=== PATIENT | male | born 1985 | race Two or more races ===

== ENCOUNTER 2016-11-23 22:09 | Emergency (ER) | payer SELFPAY ==
[~2016-11-23] VITALS: Ht 175.3 cm; Wt 131.5 kg
[2016-11-23] MEDS ORDERED: ACETAMINOPHEN ES 500 MG TABLET ONE (22:57)
[2016-11-23] MEDS ORDERED: IBUPROFEN 800 MG TABLET ONE (22:58)
[2016-11-23] MEDS ORDERED: AMOXICILLIN-CLAVUL 875-125MG TABLET ONE (22:58)
[2016-11-23] MEDS ORDERED: IBUPROFEN 800 MG TABLET PO ONE (23:00)
[2016-11-23] MEDS ORDERED: AMOXICILLIN-CLAVUL 875-125MG TABLET PO ONE (23:00)
[2016-11-23] MEDS ORDERED: ACETAMINOPHEN ES 500 MG TABLET PO ONE (23:00)
--- NOTE | 2016-11-23 23:00 | NUR ---
Patient discharged to home in stable conditon. Written and verbal after care instructions given. Patient verbalizes understanding of instructions.
== END 2016-11-23 23:01 | disposition home or self-care (01) ==
LOC: ER 22:09
DX: J02.0 Streptococcal pharyngitis (principal); F10.20 Alcohol dependence, uncomplicated
CPT/HCPCS: A4663

== ENCOUNTER 2016-11-27 10:57 | Emergency (ER) | payer SELFPAY ==
[~2016-11-27] VITALS: Ht 175.3 cm; Wt 131.5 kg
[2016-11-27] MEDS ORDERED: AMOX-430 PO (11:05)
--- NOTE | 2016-11-27 11:48 | NUR ---
Patient discharged to home in stable conditon. Written and verbal after care instructions given. Patient verbalizes understanding of instructions.PT WALKS IN STEADY GAIT. NO SIGN OF DISTRESS.
== END 2016-11-27 11:52 | disposition home or self-care (01) ==
LOC: ER 10:57
DX: K05.10 Chronic gingivitis, plaque induced (principal); K20.9 Esophagitis, unspecified; F10.20 Alcohol dependence, uncomplicated
CPT/HCPCS: 71010; 93005; A4663

== ENCOUNTER 2016-12-24 16:23 | Emergency (ER) | payer SELFPAY ==
[~2016-12-24] VITALS: Ht 175.3 cm; Wt 102.1 kg
[~2016-12-24 16:23] MED LIST: AMOX-430 PO
--- NOTE | 2016-12-24 17:35 | NUR ---
Pt ambulatory to bed 4b, dr craft at bedside for exam.
[2016-12-24] MEDS ORDERED: CEPHALEXIN MONOHYDRATE 500 MG CAPSULE PO ONE (18:00)
[2016-12-24] MEDS ORDERED: predniSONE 20 MG TABLET PO ONE (18:00)
[2016-12-24] MEDS ORDERED: predniSONE 20 MG TABLET ONE (18:11)
[2016-12-24] MEDS ORDERED: CEPHALEXIN MONOHYDRATE 500 MG CAPSULE ONE (18:12)
--- NOTE | 2016-12-24 18:14 | NUR ---
Pt medicated and ready for dc.
[2016-12-24 18:15] VITALS: BP 126/84
== END 2016-12-24 18:16 | disposition home or self-care (01) ==
LOC: ER 16:23
DX: L04.0 Acute lymphadenitis of face, head and neck (principal); F10.20 Alcohol dependence, uncomplicated; J45.909 Unspecified asthma, uncomplicated
CPT/HCPCS: A4663; J7512

== ENCOUNTER 2017-03-11 09:54 | Emergency (ER) | payer SELFPAY ==
[~2017-03-11] VITALS: Ht 175.3 cm; Wt 127.0 kg
--- NOTE | 2017-03-11 10:05 | NUR ---
PT IS IN ROOM #2A. DR TARIQ EVALUATED THE P.
[2017-03-11] MEDS ORDERED: OXYCODONE/APAP 5-325 MG TABLET PO ONE (10:30)
[2017-03-11] MEDS ORDERED: predniSONE 20 MG TABLET PO ONE (10:30)
[2017-03-11] MEDS ORDERED: OXYCODONE/APAP 5-325 MG TABLET ONE (10:40)
[2017-03-11] MEDS ORDERED: predniSONE 50 MG TABLET ONE (10:41)
[2017-03-11] MEDS ORDERED: predniSONE 10 MG TABLET ONE (10:41)
--- NOTE | 2017-03-11 10:42 | NUR ---
PT WAS D/C TO HOME. D/C INSTRUCTIONS GIVEN TO THE PT.
[2017-03-11 10:44] VITALS: BP 139/88
== END 2017-03-11 10:45 | disposition home or self-care (01) ==
LOC: ER 09:56
DX: M10.9 Gout, unspecified (principal); F10.20 Alcohol dependence, uncomplicated; J45.909 Unspecified asthma, uncomplicated; E66.9 Obesity, unspecified; Z90.49 Acquired absence of other specified parts of digestive tract
CPT/HCPCS: A4663; J7512

== ENCOUNTER 2017-04-19 19:47 | Emergency (ER) | payer SELFPAY ==
[~2017-04-19] VITALS: Ht 175.3 cm; Wt 131.5 kg
[2017-04-19] MEDS ORDERED: HYDROCODONE/APAP 10-325 MG TABLET PO ONE ×2 (20:15)
[2017-04-19] MEDS ORDERED: COLCHICINE 0.6 MG TABLET PO ONE (20:15)
[2017-04-19] MEDS ORDERED: HYDROCODONE/APAP 10-325 MG TABLET ONE ×2 (20:25→20:29)
[2017-04-19] MEDS ORDERED: COLCHICINE 0.6 MG TABLET ONE (20:26)
--- NOTE | 2017-04-19 20:30 | NUR ---
Patient discharged to home in stable conditon. Written and verbal after care instructions given. Patient verbalizes understanding of instructions. WALKED OUT OF ER WITH STEADYB GAIT
[2017-04-19 20:31] VITALS: BP 128/75
== END 2017-04-19 20:32 | disposition home or self-care (01) ==
LOC: ER 19:47
DX: M10.9 Gout, unspecified (principal); J45.909 Unspecified asthma, uncomplicated; E66.9 Obesity, unspecified; Z90.49 Acquired absence of other specified parts of digestive tract
CPT/HCPCS: 99284; A4663

== ENCOUNTER 2017-06-23 17:00 | Emergency (ER) | payer SELFPAY ==
[~2017-06-23] VITALS: Ht 175.3 cm; Wt 122.5 kg
[2017-06-23] MEDS ORDERED: INDOMETHACIN 25 MG CAPSULE PO ONE (18:45)
[2017-06-23] MEDS ORDERED: HYDROCODONE/APAP 10-325 MG TABLET PO ONE (18:45)
[2017-06-23] MEDS ORDERED: COLCHICINE 0.6 MG TABLET PO ONE (18:45)
--- NOTE | 2017-06-23 19:15 | NUR ---
Patient discharged to home in stable conditon. Written and verbal after care instructions given. Patient verbalizes understanding of instructions.
[2017-06-23] MEDS ORDERED: COLCHICINE 0.6 MG TABLET ONE (19:22)
[2017-06-23] MEDS ORDERED: INDOMETHACIN 25 MG CAPSULE ONE (19:23)
[2017-06-23] MEDS ORDERED: HYDROCODONE/APAP 10-325 MG TABLET ONE (19:23)
== END 2017-06-23 19:16 | disposition home or self-care (01) ==
LOC: ER 17:00
DX: M10.9 Gout, unspecified (principal); J45.909 Unspecified asthma, uncomplicated
CPT/HCPCS: 99284; A4663

== ENCOUNTER 2017-09-14 07:24 | Emergency (ER) | payer SELFPAY ==
[~2017-09-14] VITALS: Ht 172.7 cm; Wt 122.5 kg
[2017-09-14] MEDS ORDERED: COLCHICINE 0.6 MG TABLET PO ONE (07:45)
--- NOTE | 2017-09-14 07:55 | NUR ---
Oma jaime in EDM - 09/14/17 at 0758 by HARSHIL Patient discharged to home in stable conditon. Written and verbal after care instructions given. Patient verbalizes understanding of instructions. Stressed f/u with pmd as recommended by ER physician.
--- NOTE | 2017-09-14 07:55 | NUR ---
Pt was given verbal ACI by Dr. Kelly, pt was given his written ACI including Rx for Colchicine but pt refused to sign for written ACI because he was upset he was not Rx [place]. Stressed f/u with pmd as recommended by Dr. Kelly. Pt ambulated out of ER with steady gait.
[2017-09-14] MEDS ORDERED: COLCHICINE 0.6 MG TABLET ONE (08:01)
== END 2017-09-14 07:56 | disposition home or self-care (01) ==
LOC: ER 07:24
DX: M10.9 Gout, unspecified (principal); J45.909 Unspecified asthma, uncomplicated; E66.01 Morbid (severe) obesity due to excess calories; Z90.49 Acquired absence of other specified parts of digestive tract
CPT/HCPCS: A4663

== ENCOUNTER 2018-02-26 00:07 | Emergency (ER) | payer SELFPAY ==
[~2018-02-26] VITALS: Ht 172.7 cm; Wt 122.5 kg
--- NOTE | 2018-02-26 00:20 | NUR ---
PATIENT WALKED INTO ER C/O LEFT FOREARM RASH. PATIENT STATES RASH IS ITCHY AND WORSEN IN THE LAST TWO DAYS. NO DRAINAGED NOTED ON AREA
[2018-02-26] MEDS ORDERED: CLINDAMYCIN HCL 150 MG CAPSULE ONE (00:40)
--- NOTE | 2018-02-26 00:40 | NUR ---
Patient discharged to home in stable conditon. Written and verbal after care instructions given. Patient verbalizes understanding of instructions.
[2018-02-26 00:42] VITALS: BP 148/79
[2018-02-26] MEDS ORDERED: CLINDAMYCIN HCL 150 MG CAPSULE PO ONE (00:45)
== END 2018-02-26 00:42 | disposition home or self-care (01) ==
LOC: ER 00:10
DX: L03.114 Cellulitis of left upper limb (principal); J45.909 Unspecified asthma, uncomplicated; G89.29 Other chronic pain; M54.5 Low back pain; Z90.49 Acquired absence of other specified parts of digestive tract
CPT/HCPCS: 99283; A4663

== ENCOUNTER 2018-08-31 01:48 | Emergency (ER) | payer MEDICAID ==
[~2018-08-31] VITALS: Ht 175.3 cm; Wt 136.1 kg
--- NOTE | 2018-08-31 02:16 | NUR ---
Patient discharged to home in stable conditon. Written and verbal after care instructions given. Patient verbalizes understanding of instructions. Ambulated from ER with stable gait. All belongings with patient. VSS.
[2018-08-31 02:17] VITALS: BP 141/78
== END 2018-08-31 02:17 | disposition home or self-care (01) ==
LOC: ER 01:49
DX: R21 Rash and other nonspecific skin eruption (principal); J45.909 Unspecified asthma, uncomplicated; Z90.49 Acquired absence of other specified parts of digestive tract
CPT/HCPCS: A4663

== ENCOUNTER 2019-05-29 04:03 | Emergency (ER) | payer MEDICAID ==
[~2019-05-29] VITALS: Ht 172.7 cm; Wt 131.5 kg
--- NOTE | 2019-05-29 04:23 | NUR ---
Dr. Locke at bedside for MSE.
[2019-05-29] MEDS ORDERED: HYDROCODONE/APAP 5-325MG TABLET PO ONE ×2 (04:30→05:15)
[2019-05-29] MEDS ORDERED: HYDROCODONE/APAP 5-325MG TABLET ONE ×2 (04:34→05:20)
--- NOTE | 2019-05-29 04:35 | NUR ---
Pt out of ER for CT.
--- NOTE | 2019-05-29 05:02 | NUR ---
Pt back to ER from CT.
--- NOTE | 2019-05-29 05:44 | NUR ---
Patient discharged to home in stable conditon. Written and verbal after care instructions given. Patient verbalizes understanding of instructions. Pt ambulated out of ER with steady gait, no acute signs of distress, VSS, all belongings taken.
[2019-05-29 05:45] VITALS: BP 138/75
== END 2019-05-29 05:45 | disposition home or self-care (01) ==
LOC: ER 04:08
DX: S16.1XXA Strain of muscle, fascia and tendon at neck level, initial encounter (principal); S20.212A Contusion of left front wall of thorax, initial encounter; S09.90XA Unspecified injury of head, initial encounter; J45.909 Unspecified asthma, uncomplicated; Z90.49 Acquired absence of other specified parts of digestive tract; V49.49XA Driver injured in collision with other motor vehicles in traffic accident, initial encounter; Y93.89 Activity, other specified; Y92.410 Unspecified street and highway as the place of occurrence of the external cause; Y99.8 Other external cause status
CPT/HCPCS: 70450; 71250; 72125; 93005; A4663

== ENCOUNTER 2019-08-07 23:51 | Emergency (ER) | payer MEDICAID ==
[~2019-08-07] VITALS: Ht 172.7 cm; Wt 136.1 kg
[2019-08-08] MEDS ORDERED: HYDROCODONE/APAP 10-325 MG TABLET PO ONE (00:15)
[2019-08-08] MEDS ORDERED: HYDROCODONE/APAP 10-325 MG TABLET ONE (00:16)
--- NOTE | 2019-08-08 00:21 | NUR ---
Patient discharged to home in stable conditon. Written and verbal after care instructions given. Patient verbalizes understanding of instructions. Patient ambulated with stable gait.
[2019-08-08 00:23] VITALS: BP 135/80
== END 2019-08-08 00:23 | disposition home or self-care (01) ==
LOC: ER 23:51
DX: G89.29 Other chronic pain (principal); M54.9 Dorsalgia, unspecified; R21 Rash and other nonspecific skin eruption; J45.909 Unspecified asthma, uncomplicated; Z76.0 Encounter for issue of repeat prescription; Z90.49 Acquired absence of other specified parts of digestive tract
CPT/HCPCS: A4663

== ENCOUNTER 2019-11-01 21:13 | Emergency (ER) | payer MEDICAID ==
[~2019-11-01] VITALS: Ht 172.7 cm; Wt 149.7 kg
[2019-11-01] MEDS ORDERED: INDOMETHACIN 25 MG CAPSULE ONE (21:59)
[2019-11-01] MEDS ORDERED: COLCHICINE 0.6 MG TABLET ONE (21:59)
[2019-11-01] MEDS ORDERED: COLCHICINE 0.6 MG TABLET PO ONE (22:00)
[2019-11-01] MEDS ORDERED: INDOMETHACIN 25 MG CAPSULE PO ONE (22:00)
--- NOTE | 2019-11-01 22:01 | NUR ---
Patient discharged to home in stable conditon. Written and verbal after care instructions given. Patient verbalizes understanding of instructions.
== END 2019-11-01 22:02 | disposition home or self-care (01) ==
LOC: ER 21:13
DX: M10.071 Idiopathic gout, right ankle and foot (principal)
CPT/HCPCS: A4663

== ENCOUNTER 2019-11-02 12:00 | Emergency (ER) | payer MEDICAID ==
[~2019-11-02] VITALS: Ht 172.7 cm; Wt 149.7 kg
--- NOTE | 2019-11-02 12:37 | NUR ---
PATIENT HAS RIGHT FOOT SWELLING STATES IS GOUT FLARE UP. WAS IN ER LAST NIGHT AND PATIENT WAS PRESCRIBED PAIN MEDICATION THAT IS NOT WORKING OUT FOR PATIENT AT THIS TIME AND CAME BACK.
--- NOTE | 2019-11-02 12:43 | NUR ---
GIVEN PRESCRIPTION AND DISCHARGE INSTRUCTIONS. PATIENT VERBALIZED UNDERSTANDING OF INSTRUCTIONS
== END 2019-11-02 12:44 | disposition home or self-care (01) ==
LOC: ER 12:00
DX: M10.071 Idiopathic gout, right ankle and foot (principal); J45.909 Unspecified asthma, uncomplicated; Z90.49 Acquired absence of other specified parts of digestive tract
CPT/HCPCS: A4663

== ENCOUNTER 2021-09-09 06:21 | Emergency (ER) | payer MEDICAID ==
[~2021-09-09] VITALS: Ht 175.3 cm; Wt 136.1 kg
[2021-09-09] MEDS ORDERED: KETOROLAC TROMETHAMINE 30 MG INJ IM ONE (07:00)
[2021-09-09] MEDS ORDERED: DEXAMETHASONE SOD PHOSPHATE 4 MG INJ IM ONE (07:00)
[2021-09-09] MEDS ORDERED: KETOROLAC TROMETHAMINE 30 MG INJ ONE (07:17)
[2021-09-09] MEDS ORDERED: DEXAMETHASONE SOD PHOSPHATE 10 MG INJ ONE (07:17)
[2021-09-09] MEDS ORDERED: DEXA6TAB6 PO (07:35)
--- NOTE | 2021-09-09 07:45 | NUR ---
DR WESTFALL RENDERED DISCHARGE INSTRUCTIONS AND TEST RESULTS TO PATIENT - STRESSING NEED FOR QUARANTINE AND HOMECARE.
[2021-09-09 07:47] VITALS: BP 143/56
== END 2021-09-09 07:48 | disposition home or self-care (01) ==
LOC: ER 06:21
DX: U07.1 COVID-19 (principal); J12.82 Pneumonia due to coronavirus disease 2019; B30.9 Viral conjunctivitis, unspecified; M10.9 Gout, unspecified; H11.31 Conjunctival hemorrhage, right eye; E66.9 Obesity, unspecified; Z68.41 Body mass index [BMI] 40.0-44.9, adult; Z90.49 Acquired absence of other specified parts of digestive tract; E11.9 Type 2 diabetes mellitus without complications; R03.0 Elevated blood-pressure reading, without diagnosis of hypertension
CPT/HCPCS: 71046; 73630; 96372 ×2; 99284; J1100; J1885; A4663

== ENCOUNTER 2022-01-30 21:11 | Emergency (ER) | payer MEDICAID ==
[~2022-01-30] VITALS: Ht 172.7 cm; Wt 136.1 kg
[~2022-01-30 21:11] MED LIST changes: -AMOX-430 PO; +DEXA6TAB6 PO
[2022-01-30] MEDS ORDERED: HYDROCODONE/APAP 10-325 MG TABLET ONE (22:15)
[2022-01-30] MEDS ORDERED: HYDROCODONE/APAP 10-325 MG TABLET PO ONE (22:15)
--- NOTE | 2022-01-30 22:22 | NUR ---
Oma jaime in [facility] - 01/30/22 at 2228 by [id number] Patient was called to be triaged but was not present in the waiting room or outside of ER.
[2022-01-30] MEDS ORDERED: HYDR-4209 PO ×2 (23:04→23:06)
--- NOTE | 2022-01-30 23:11 | NUR ---
Patient discharged to home in stable condition. Written and verbal after care instructions given. Patient verbalizes understanding of instructions. Stressed follow up or return to ER for worsening s/s. pt ambulated with steady gait. AOx4
[2022-01-30 23:13] VITALS: BP 141/79
== END 2022-01-30 23:13 | disposition home or self-care (01) ==
LOC: ER 21:17
DX: M10.9 Gout, unspecified (principal); E11.9 Type 2 diabetes mellitus without complications; Z90.49 Acquired absence of other specified parts of digestive tract; Z79.899 Other long term (current) drug therapy
CPT/HCPCS: A4663

== ENCOUNTER 2022-06-23 10:21 | Emergency (ER) | payer MEDICAID ==
[~2022-06-23] VITALS: Ht 172.7 cm; Wt 149.7 kg
[~2022-06-23 10:21] MED LIST changes: +HYDR-4209 PO
--- NOTE | 2022-06-23 10:35 | NUR ---
Patient is a 36 year old male that was brought in by due to left big toe pain related to gout. Patient woke up this morning and began to feel severe 10/10 pain. No acute distress at the moment.
--- NOTE | 2022-06-23 10:40 | NUR ---
at bedside for evaluation.
[2022-06-23] MEDS ORDERED: HYDROCODONE/APAP 5-325MG TABLET ONE (10:43)
[2022-06-23] MEDS ORDERED: MORPHINE SULFATE 4 MG/1 ML DISP.SYRIN IM ONE (10:45)
[2022-06-23] MEDS ORDERED: HYDROCODONE/APAP 5-325MG TABLET PO ONE (10:45)
[2022-06-23] MEDS ORDERED: MORPHINE SULFATE 4 MG/1 ML DISP.SYRIN ONE (10:46)
[2022-06-23] MEDS ORDERED: HYDR-3974 PO (10:57)
--- NOTE | 2022-06-23 11:13 | NUR ---
Patient discharged to home in stable condition. Written and verbal after care instructions given. Patient verbalizes understanding of instructions. Crutches provdied. Education on the use of crutches provided. Stressed follow up or return to ER for worsening s/s.
[2022-06-23 11:14] VITALS: BP 159/98
== END 2022-06-23 11:16 | disposition home or self-care (01) ==
LOC: ER 10:23
DX: M10.9 Gout, unspecified (principal); Z90.49 Acquired absence of other specified parts of digestive tract; E66.9 Obesity, unspecified; Z68.43 Body mass index [BMI] 50.0-59.9, adult; E11.9 Type 2 diabetes mellitus without complications
CPT/HCPCS: 99283; 96372; J2270; A4663

== ENCOUNTER 2022-11-07 01:31 | Emergency (ER) | payer MEDICAID ==
[~2022-11-07] VITALS: Ht 172.7 cm; Wt 163.3 kg
[~2022-11-07 01:31] MED LIST changes: +HYDR-3974 PO
--- NOTE | 2022-11-07 02:30 | NUR ---
Dr. Pompa evaluating patient at bedside. MSE in progress.
[2022-11-07] MEDS ORDERED: IBUPROFEN 800 MG TABLET PO ONE (02:45)
[2022-11-07] MEDS ORDERED: HYDROCODONE/APAP 10-325 MG TABLET PO ONE (02:45)
[2022-11-07] MEDS ORDERED: IBUPROFEN 800 MG TABLET ONE (02:47)
[2022-11-07] MEDS ORDERED: HYDROCODONE/APAP 10-325 MG TABLET ONE (02:48)
[2022-11-07] MEDS ORDERED: IBUP-1958 PO (03:40)
[2022-11-07] MEDS ORDERED: HYDR-4209 PO (03:41)
--- NOTE | 2022-11-07 03:45 | NUR ---
Patient stated Motrin 800mg and [place] 10-325mg 1 tab were effective for low back pain. Patient in stable condition, no signs of distress noted.
--- NOTE | 2022-11-07 03:48 | NUR ---
Patient discharged to home in stable condition. Written and verbal after care instructions given. Patient verbalizes understanding of instructions. Stressed follow up or return to ER for worsening s/s. Instructed patient not to drive.
--- NOTE | 2022-11-07 03:50 | NUR ---
Patient was discharged prior to [place] 10-325mg reassessment. Marked as not done. Patient stated decreased pain 3/10 lower pain prior to discharge.
[2022-11-07 04:34] VITALS: BP 140/85
== END 2022-11-07 04:34 | disposition home or self-care (01) ==
LOC: ER 01:35
DX: M54.50 Low back pain, unspecified (principal); V49.40XA Driver injured in collision with unspecified motor vehicles in traffic accident, initial encounter; Y92.414 Local residential or business street as the place of occurrence of the external cause; E66.9 Obesity, unspecified; Z68.43 Body mass index [BMI] 50.0-59.9, adult; Z90.49 Acquired absence of other specified parts of digestive tract; Z80.9 Family history of malignant neoplasm, unspecified
CPT/HCPCS: A4663